=== PATIENT | male | born 1935 | race Caucasian/White ===

== ENCOUNTER 2016-10-09 08:48 | Emergency (ER) | payer MEDICARE, BC ==
[2016-10-09] MEDS ORDERED: Meclizine HCl 25 MG TAB ONE (11:37)
== END 2016-10-09 13:38 | disposition home or self-care (01) ==
LOC: ER 08:48
DX: R42 Dizziness and giddiness (principal)
CPT/HCPCS: 36415; 70450; 80053; 82553; 82947; 84484; 85025; 93005